=== PATIENT | female | born 2000 | race Caucasian/White ===

== ENCOUNTER 2018-11-29 11:32 | Emergency (ER) | payer MEDICAID ==
--- NOTE | 2018-11-29 11:45 | EDM.PDOC ---
ED HPI GENERAL MEDICAL PROBLEM - General Chief Complaint: Syncope Stated Complaint: FAINTED AT THE CLINIC Time Seen by Provider: 11/29/18 11:41 Source of Information: Reports: Patient History Limitations: Reports: No Limitations - History of Present Illness INITIAL COMMENTS - FREE TEXT/NARRATIVE: patient was at clinic this am having us for and also lab After lab, she had a near syncopal episode; per boyfriend, she was talking throughout the entire episode but she did become pale and per staff at clinic, her blood pressure dropped to 60's systolic. They sent her over because they felt she wasn't "coming around" as quickly as they would expect; she is resting comfortably currently; feels fine; BP 120 systolic. Awaiting labs and US report from clinic that was obtained today. 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: Social & Family History - Tobacco Use Smoking Status *Q: Never Smoker - Recreational Drug Use Recreational Drug Use: No ED ROS GENERAL - Review of Systems Review Of Systems: See Below Constitutional: Reports: Weakness, Other (lightheaded) HEENT: Reports: No Symptoms Respiratory: Reports: No Symptoms Cardiovascular: Reports: No Symptoms GI/Abdominal: Reports: Nausea : Reports: No Symptoms Musculoskeletal: Reports: No Symptoms Skin: Reports: No Symptoms Neurological: Reports: No Symptoms Psychiatric: Reports: No Symptoms ED EXAM, GENERAL - Physical Exam Exam: See Below Exam Limited By: No Limitations General Appearance: Alert, WD/WN, No Apparent Distress Eye Exam: Bilateral Eye: EOMI, PERRL Ears: Normal External Exam Head: Atraumatic, Normocephalic Neck: Normal Inspection, Supple, Non-Tender, Full Range of Motion Respiratory/Chest: No Respiratory Distress, Lungs Clear, Normal Breath Sounds Cardiovascular: Regular Rate, Rhythm GI/Abdominal: Normal Bowel Sounds, Soft, Non-Tender Back Exam: Normal Inspection, Full Range of Motion Extremities: Normal Range of Motion Neurological: Alert, Oriented, CN II-XII Intact, Normal Cognition, Normal Gait Psychiatric: Normal Affect, Normal Mood Skin Exam: Warm, Dry, Intact, Normal Color Course - Vital Signs Last Recorded V/S: Last Vital Signs Temp 96 F 11/29/18 11:35 Pulse 57 L 11/29/18 13:35 Resp 13 11/29/18 13:35 BP 105/68 11/29/18 13:35 Pulse Ox 100 11/29/18 12:08 - Orders/Labs/Meds Orders: Active Orders 24 hr Category Date Time Status Peripheral IV Care [RC] . DIRECTED Care 11/29/18 12:44 Active Peripheral IV Insertion Adult [OM.PC] Stat Oth 11/29/18 12:44 Ordered Meds: Medications Discontinued Medications Generic Name Dose Route Start Last Admin Trade Name Freq PRN Reason Stop Dose Admin Acetaminophen 650 mg 11/29/18 12:20 11/29/18 12:27 Tylenol PO 11/29/18 12:21 650 mg NOW ONE Administration Sodium Chloride 1,000 mls @ 999 mls/hr 11/29/18 12:45 11/29/18 12:50 Normal Saline IV 999 mls/hr ASDIRECTED PAUL Administration Ondansetron HCl 4 mg 11/29/18 12:46 11/29/18 12:55 Zofran IVPUSH 11/29/18 12:47 4 mg ONETIME ONE Administration Sodium Chloride 10 ml 11/29/18 12:44 11/29/18 13:53 Saline Flush FLUSH 10 ml ASDIRECTED PRN Administration Keep Vein Open - Re-Assessments/Exams Free Text/Narrative Re-Assessment/Exam: 11/29/18 12:11 US shows intrauterine , 6 weeks, 3 days with HR 116. Yolk sac 2 mm in diameter. Normal appearance. Second gestational sac is irregular, no detected heart beat; recommend FU with U/s. Labs show wbc 5.2, glucose 82, Hgb 12.9 platelets 273. Free Text/Narrative Re-Assessment/Exam: 11/29/18 12:43 Nurse was getting patient up and ready for discharge and she became weak, and nauseated. Will start IV and given bolus of NS, 1 L. Free Text/Narrative Re-Assessment/Exam: 11/29/18 15:15 After 1 L of NS, she was feeling better; she was able to eat and have something to drink; nurse had patient up and ambulated the halls without any complications ; she feels she is fine for discharge; VSS. Will DC to home. Departure - Departure Time of Disposition: 13:40 Disposition: Home, Self-Care 01 Clinical Impression: Vasovagal syncope, Vasovagal near syncope - Discharge Information *PRESCRIPTION DRUG MONITORING PROGRAM REVIEWED*: Not Applicable *COPY OF PRESCRIPTION DRUG MONITORING REPORT IN PATIENT KAYLA: Not Applicable Instructions: Near-Syncope Referrals: Gracie Dos Santos CNM [Primary Care Provider] - Forms: ED Department Discharge Additional Instructions: Please follow up with your doctor this week. If symptoms worsen, return to the ER drink plenty of water. Call with questions. - Problem List & Annotations (1) Vasovagal near syncope SNOMED Code(s): 791362012 Code(s): R55 - SYNCOPE AND COLLAPSE Status: Acute Priority: Medium - Problem List Review Problem List Initiated/Reviewed/Updated: Yes - My Orders Last 24 Hours: My Active Orders 11/29/18 12:44 Peripheral IV Care [RC] . DIRECTED Peripheral IV Insertion Adult [OM.PC] Stat - Assessment/Plan Last 24 Hours: My Active Orders 11/29/18 12:44 Peripheral IV Care [RC] . DIRECTED Peripheral IV Insertion Adult [OM.PC] Stat
[2018-11-29] MEDS ORDERED: Acetaminophen 325 MG Tab PO ONE (12:20)
[2018-11-29] MEDS ORDERED: Sodium Chloride 0.9% 10 ML Syringe FLUSH PRN (12:44)
[2018-11-29] MEDS ORDERED: Sodium Chloride 0.9% 1,000 ML IV SCH (12:45)
[2018-11-29] MEDS ORDERED: Ondansetron 4 MG/2 ML SDV IVPUSH ONE (12:46)
== END 2018-11-29 14:00 | disposition home or self-care (01) ==
LOC: JP.ED 11:32
DX: O99.89 Other specified diseases and conditions complicating pregnancy, childbirth and the puerperium (principal); R55 Syncope and collapse; Z79.899 Other long term (current) drug therapy; Z3A.01 Less than 8 weeks gestation of pregnancy
CPT/HCPCS: 96361; 96374; 99283; A9270; J2405; J7030

== ENCOUNTER 2019-07-04 13:55 | Inpatient (IN) | payer SELFPAY ==
[2019-07-04] MEDS ORDERED: Lactated Ringers 1,000 ML IV SCH (14:15)
[2019-07-04] MEDS ORDERED: Penicillin G Potassium 5 MILLUNITS in Sodium Chloride 0.9% 100 ML IV ONE (14:30)
[2019-07-04] MEDS ORDERED: ePHEDrine 50 MG/ML SDV IVPUSH PRN (14:31)
[2019-07-04] MEDS ORDERED: Lactated Ringers 1,000 ML IV ONE (14:31)
[2019-07-04] MEDS ORDERED: Sodium Chloride 0.9% 10 ML Syringe FLUSH PRN (15:00)
--- NOTE | 2019-07-04 15:09 | PCM.LDHP ---
L&D History of Present Illness - General Date of Service: 07/04/19 (labor) Admit Problem/Dx: Patient Status Order with Admit Dx/Problem 07/04/19 15:00 Patient Status [ADT] Routine Admission Diagnosis/Problem Admission Diagnosis/Problem Source of Information: Patient History Limitations: Reports: No Limitations - History of Present Illness Introduction:: 07/04/19 19 year old G1 39 1/7 weeks gestation presents in active labor She is GBS positive, treatment started CAN 07/10/19 ABO A pos Rubella immune HIV neg Timing/Duration: Reports: minutes: (3) Quality: Reports: Pressure Severity: Moderate Improves with: Reports: Movement Worsens with: Reports: None - Related Data Allergies/Adverse Reactions: Allergies Allergy/AdvReac Type Severity Reaction Status Date / Time No Known Allergies Allergy Verified 11/29/18 11:37 Home Medications: Home Meds Pnv,Calcium 72/Iron,Carb/Folic [ Plus Iron Tablet] 1 tab PO DAILY [History] Past Medical History - Past Health History Medical/Surgical History: Denies 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: : 1 Para: 0 LMP (Approximate): (CAN 07/10/19) Social & Family History - Tobacco Use Smoking Status *Q: Never Smoker Second Hand Smoke Exposure: No - Caffeine Use Caffeine Use: Reports: None - Recreational Drug Use Recreational Drug Use: No H&P Review of Systems - Review of Systems: Review Of Systems: See Below General: Reports: No Symptoms HEENT: Reports: No Symptoms Pulmonary: Reports: No Symptoms Cardiovascular: Reports: No Symptoms Gastrointestinal: Reports: No Symptoms Genitourinary: Reports: No Symptoms Musculoskeletal: Reports: No Symptoms Skin: Reports: No Symptoms Psychiatric: Reports: No Symptoms Neurological: Reports: No Symptoms Hematologic/Lymphatic: Reports: No Symptoms Immunologic: Reports: No Symptoms L&D Exam - Exam Exam: See Below - Vital Signs Vital Signs: Last Vital Signs Temp 98.2 F 07/04/19 14:04 Pulse Resp 18 07/04/19 14:04 BP 122/66 07/04/19 14:04 Pulse Ox Weight: 143 lb - OB Specific Contraction Intensity: Moderate Movement: Active Heart Tones: Present Heart Tones per Min: 130 Heart Rate (FHR) Variability: Moderate (6-25 bmp) Presentation: Vertex Estimated Weight: 7 pounds - Cao Score Cao Score Cervix Position: Midposition Cao Score Consistency: Soft Cao Score Effacement: >80% Cao Score Dilation: > 5 cm Cao Score Infant's Station: -1 ,0 Cao Score Total: 11 - Exam General: Alert HEENT: Conjunctiva Clear, Mucosa Moist & [place] Neck: Supple Lungs: Normal Respiratory Effort Cardiovascular: Regular Rate GI/Abdominal Exam: Soft Genitourinary: Cervical dilitation, Enlarged uterus Extremities: No Pedal Edema, Normal Capillary Refill Skin: Warm Neurological: Cranial Nerves Intact, Reflexes Equal Bilateral Psychiatric: Alert, Normal Affect, Normal Mood - Patient Data Lab Results Last 24 hrs: Laboratory Results - last 24 hr 07/04/19 07/04/19 Range/Units 14:05 14:05 Urine Color Yellow (YELLOW) Urine Appearance Cloudy A (CLEAR) Urine pH 7.0 (5.0-8.0) Ur Specific [place] 1.020 (1.008-1.030) Urine Protein Negative (NEGATIVE) mg/dL Urine Glucose (UA) Negative (NEGATIVE) mg/dL Urine Ketones Negative (NEGATIVE) mg/dL Urine Occult Blood Negative (NEGATIVE) Urine Nitrite Negative (NEGATIVE) Urine Bilirubin Negative (NEGATIVE) Urine Urobilinogen 0.2 (0.2-1.0) EU/dL Ur Leukocyte Esterase Trace H (NEGATIVE) Urine RBC 0-5 (0-5) Urine WBC 5-10 H (0-5) Ur Epithelial Cells Many Amorphous Sediment Moderate Urine Bacteria Moderate Urine Mucus Few Urine Opiates Screen Negative (NEGATIVE) Ur Oxycodone Screen Negative (NEGATIVE) Urine Methadone Screen Negative (NEGATIVE) Ur Propoxyphene Screen Negative (NEGATIVE) Ur Barbiturates Screen Negative (NEGATIVE) Ur Tricyclics Screen Negative (NEGATIVE) Ur Phencyclidine Scrn Negative (NEGATIVE) Ur Amphetamine Screen Negative (NEGATIVE) U Methamphetamines Scrn Negative (NEGATIVE) Urine MDMA Screen Negative (NEGATIVE) U Benzodiazepines Scrn Negative (NEGATIVE) U Cocaine Metab Screen Negative (NEGATIVE) U Marijuana (THC) Screen Negative (NEGATIVE) - Problem List (1) GBS (group B Streptococcus carrier), +RV culture, currently SNOMED Code(s): 5134154248597, [id number], 6838476998866 ICD Code: O99.820 - STREPTOCOCCUS B CARRIER STATE COMPLICATING Status: Acute Current Visit: Yes (2) Active labor at term SNOMED Code(s): 70241649 ICD Code: XGQ9291 - Status: Acute Current Visit: Yes (3) SNOMED Code(s): 03405225 ICD Code: Z34.90 - ENCNTR FOR SUPRVSN OF NORMAL , UNSP, UNSP TRIMESTER Status: Acute Current Visit: Yes Qualifiers: Weeks of gestation: 38 weeks Qualified Code(s): Z3A.38 - 38 weeks gestation of Problem List Initiated/Reviewed/Updated: Yes Orders Last 24hrs: Active Orders 24 hr Category Date Time Status Patient Status [ADT] Routine ADT 07/04/19 15:00 Ordered Antiembolic Devices [RC] .Routine Care 07/04/19 15:03 Ordered Communication Order [RC] ASDIRECTED Care 07/04/19 14:31 Active Communication Order [RC] ASDIRECTED Care 07/04/19 15:00 Ordered Heart Tones [RC] PER UNIT ROUTINE Care 07/04/19 15:00 Ordered Insert Urinary Catheter [OM.PC] ASDIRECTED Care 07/04/19 14:45 Ordered Local Anesthetic Infusion Pump [RC] ASDIRECTED Care 07/04/19 14:31 Active Notify Provider Vital Signs [RC] PRN Care 07/04/19 15:00 Ordered Notify Provider [RC] PRN Care 07/04/19 15:00 Ordered OB Check [OM.PC] Click to Edit Care 07/04/19 14:05 Ordered PCEA Epidural [RC] ASDIRECTED Care 07/04/19 14:31 Active Urinary Catheter Assessment [RC] ASDIRECTED Care 07/04/19 14:31 Active VTE/DVT Education [RC] Click to Edit Care 07/04/19 15:03 Ordered Vital Signs [RC] PER UNIT ROUTINE Care 07/04/19 15:00 Ordered Regular Diet [DIET] Diet 07/04/19 Dinner Ordered CBC W/O DIFF,HEMOGRAM [HEME] Routine Lab 07/04/19 15:00 Ordered Lactated Ringers [Ringers, Lactated] 1,000 ml Med 07/04/19 14:31 Active IV .BOLUS Lactated Ringers [Ringers, Lactated] 1,000 ml Med 07/04/19 14:15 Active IV ASDIRECTED Penicillin G Potassium [Pfizerpen] 2.5 millunits Med 07/04/19 18:30 Active Sodium Chloride 0.9% [Normal Saline] 50 ml IV Q4H Penicillin G Potassium [Pfizerpen] 5 millunits Med 07/04/19 14:30 Active Sodium Chloride 0.9% [Normal Saline] 100 ml IV ONETIME Sodium Chloride 0.9% [Saline Flush] Med 07/04/19 15:00 Ordered 10 ml FLUSH ASDIRECTED PRN ePHEDrine [ePHEDrine sulfate] Med 07/04/19 14:31 Active 10 mg IVPUSH ASDIRECTED PRN DVT/VTE Prophylaxis Reflex [OM.PC] Routine Oth 07/04/19 15:00 Ordered Epidural Catheter Management [OM.PC] Urgent Oth 07/04/19 14:31 Ordered Saline Lock Insert [OM.PC] Routine Oth 07/04/19 15:00 Ordered Resuscitation Status Routine Resus Stat 07/04/19 15:00 Ordered Medication Orders Ephedrine Sulfate (Ephedrine Sulfate) 10 mg IVPUSH ASDIRECTED PRN PRN Reason: Hypotension Penicillin G Potassium 5 (millunits/ Sodium Chloride) 100 mls @ 100 mls/hr IV ONETIME ONE Stop: 07/04/19 15:29 Last Admin: 07/04/19 14:39 Dose: 100 mls/hr Penicillin G Potassium 2.5 (millunits/ Sodium Chloride) 50 mls @ 100 mls/hr IV Q4H PAUL Lactated Ringer's (Ringers, Lactated) 1,000 mls @ 0 mls/hr IV ASDIRECTED PAUL Lactated Ringer's (Ringers, Lactated) 1,000 mls @ 999 mls/hr IV .BOLUS ONE Stop: 07/04/19 15:31 Last Admin: 07/04/19 14:39 Dose: 999 mls/hr Assessment/Plan Comment:: 07/04/19 active labor pain management per patient request, she would like an epidural Plan for vaginal delivery
[2019-07-04] MEDS ORDERED: Ropivacaine 100 ML ONE (17:15)
--- NOTE | 2019-07-04 17:42 | PCM.PNLD ---
Labor Progress Note - VS & Meds Vital Signs: Last Vital Signs Temp 98.0 F 07/04/19 17:05 Pulse 72 07/04/19 17:12 Resp 18 07/04/19 17:12 BP 119/68 07/04/19 17:12 Pulse Ox 99 07/04/19 17:12 Active Medications: Current Medications Ephedrine Sulfate (Ephedrine Sulfate) 10 mg IVPUSH ASDIRECTED PRN PRN Reason: Hypotension Penicillin G Potassium 2.5 (millunits/ Sodium Chloride) 50 mls @ 100 mls/hr IV Q4H PAUL Lactated Ringer's (Ringers, Lactated) 1,000 mls @ 0 mls/hr IV ASDIRECTED PAUL Last Admin: 07/04/19 16:41 Dose: 125 mls/hr Sodium Chloride (Saline Flush) 10 ml FLUSH ASDIRECTED PRN PRN Reason: Keep Vein Open Discontinued Medications Penicillin G Potassium 5 (millunits/ Sodium Chloride) 100 mls @ 100 mls/hr IV ONETIME ONE Stop: 07/04/19 15:29 Last Admin: 07/04/19 14:39 Dose: 100 mls/hr Lactated Ringer's (Ringers, Lactated) 1,000 mls @ 999 mls/hr IV .BOLUS ONE Stop: 07/04/19 15:31 Last Admin: 07/04/19 14:39 Dose: 999 mls/hr Ropivacaine (Naropin 0.2%) Confirm Administered Dose 100 mls @ as directed .ROUTE .STK-MED ONE Stop: 07/04/19 17:16 - Uterine Contractions Uterine Monitoring Mode: External [facility] Contraction Intensity: Moderate Uterine Resting Tone: Soft - Monitoring Monitor Mode: Doppler/Auscultation Heart Rate (FHR) Baseline: 130 Heart Rate (FHR) Variability: Moderate (6-25 bmp) Accelerations: Present, 15x15 Decelerations: None Strip Review: Category I - Vaginal Exam Dilation (cm): 8 Effacement (Percent): 100 Station: 0 Cervical Position: Anterior Sterile Vaginal Exam Performed By: Lynne Villa - Labor Progress (Free Text) Labor Progress: AROM clear fluid, nice progression of labor expect pushing soon
[2019-07-04] MEDS ORDERED: Lidocaine 1% 50 ML MDV ONE (17:48)
[2019-07-04] MEDS ORDERED: Oxytocin 10 Units/1 ML SDV ONE (17:48)
[2019-07-04] MEDS ORDERED: Penicillin G Potassium 2.5 MILLUNITS in Sodium Chloride 0.9% 50 ML IV SCH (18:30)
--- NOTE | 2019-07-04 19:11 | ANES ---
DATE OF SERVICE: 07/04/2019 INDICATION: Madison is a 19-year-old female, patient of Lynne Villa CNM, and her Obstetric Unit. She is G1, P0, here today in second stage of labor. I was to assess her for epidural. On reviewing her history as well as lab work, and discussing procedure in depth, its risks and benefits, she was okay to proceed and consent was received. TECHNIQUE: I had her seated at the edge of the bed. Betadine prep x3 to lumbar region. Sterile drape was placed, 1% lidocaine skin wheal as well as deep at the L4-L5 region. A 17- gauge Tuohy was placed to loss of resistance. Negative CSF, negative heme, negative paresthesia. I placed the catheter to 14 cm, removed the needle, provided a test dose of 3 mL of 1.5% lidocaine with 1:200,000 epinephrine with negative sequelae. Catheter was then secured, and the patient placed in the supine position. I dosed her with 12 mL of 0.2% ropivacaine and began an infusion of that same 0.2% ropivacaine. She tolerated the procedure quite well. Please refer to nursing notes for vital signs and neuro status, which were unchanged and within normal limits. I discussed with the nurse the procedure, and they were aware of the doses, and again, she tolerated the procedure quite well. Maxwell Branch CRNA /[id number]
[2019-07-04] MEDS ORDERED: Lanolin 100% Cream 40 GM Tube TOP ONE (19:57)
[2019-07-04] MEDS ORDERED: Witch Hazel Medicated Pads 100/Jar TOP ONE (19:57)
[2019-07-04] MEDS ORDERED: Benzocaine 20% Top Spray 56 GM Bottle TOP PRN (19:57)
[2019-07-04] MEDS ORDERED: Hydrocortisone 2.5% Crm 30 GM Tube TOP PRN (19:57)
--- NOTE | 2019-07-04 20:20 | PCM.DEL ---
L & D Note - General Info Date of Service: 07/04/19 (Childbirth) Mother's Due Date: 07/10/19 - Delivery Note Labor: Spontaneous Delivery Outcome: Livebirth Infant Delivery Method: Spontaneous Vaginal Delivery-Single Delivery Mode: Spontaneous Presentation: Right Occiput Anterior (FERNANDO) Nuchal Cord: None Anesthesia Type: Epidural Amniotic Fluid Description: Clear Episiotomy Type: None Laceration: 1st Degree, Vaginal Suture type: Chromic Suture size: 3-0 Placenta: Intact, Spontaneous Cord: 3 Vessels Estimated Blood Loss: 200 Resuscitation Needed: No [place]: Stimulated, Warmed, [place] Used Provider: Lynne Villa Score 1 min: 9 Score 5 min: 9 Second Stage Interventions: Reports: Second Nurse Reviewed Heart Tones, Pushing Effectively, Pushing, McRobert's Position, Pushing, Stirrups/Leg Supports Delivery Comments (Free Text/Narrative):: This 19 year old G1 who is 39 1/7 progressed nicely to complete. She got an epidural at 1715 and was complete at 1809. She received two doses of Penicillin for GBS positive status. She delivered via a viable male over an intact perineum at 1916 in FERNANDO position. The was placed on mother's abdomen where he cried spontaneously. He was dried and stimulated, delayed cord clamping and active management of the third stage were done. Apgars of 9 & 9, all for color. The placenta was expressed spontaneously intact. No lacerations of the perineum , cervix or rectum were found. Left vaginal wall was hamburger like and bleeding , one suture with 3-0 vicryl was placed to obtain hemostasis. EBL 200cc Mother and to post in good condition. weight 7-1 First stage 0341-0222 second stage 7453-4780 Third stage 3823-5110 - General Info Date of Service: 07/04/19 Admission Dx/Problem (Free Text): Patient Status Order with Admit Dx/Problem 07/04/19 15:00 Patient Status [ADT] Routine Admission Diagnosis/Problem Admission Diagnosis/Problem Functional Status: Reports: Pain Controlled - Review of Systems General: Reports: No Symptoms HEENT: Reports: No Symptoms Pulmonary: Reports: No Symptoms Cardiovascular: Reports: No Symptoms Gastrointestinal: Reports: No Symptoms Genitourinary: Reports: No Symptoms Musculoskeletal: Reports: No Symptoms Skin: Reports: No Symptoms Neurological: Reports: No Symptoms Psychiatric: Reports: No Symptoms - Patient Data Vitals - Most Recent: Last Vital Signs Temp 98.5 F 07/04/19 18:35 Pulse 88 07/04/19 18:35 Resp 18 07/04/19 18:35 BP 115/70 07/04/19 18:35 Pulse Ox 97 07/04/19 18:35 Weight - Most Recent: 143 lb I&O - Last 24 Hours: Intake & Output 07/04/19 07/04/19 07/04/19 06:59 14:59 22:59 Intake Total 1050 Balance 1050 Lab Results Last 24 Hours: Laboratory Results - last 24 hr 07/04/19 07/04/19 07/04/19 Range/Units 14:05 14:05 15:18 WBC 15.6 H (4.5-11.0) K/uL RBC 4.61 (3.30-5.50) M/uL Hgb 13.0 (12.0-15.0) g/dL Hct 40.3 (36.0-48.0) % MCV 87 (80-98) fL MCH 28 (27-31) pg MCHC 32 (32-36) % Plt Count 259 (150-400) K/uL Urine Color Yellow (YELLOW) Urine Appearance Cloudy A (CLEAR) Urine pH 7.0 (5.0-8.0) Ur Specific [place] 1.020 (1.008-1.030) Urine Protein Negative (NEGATIVE) mg/dL Urine Glucose (UA) Negative (NEGATIVE) mg/dL Urine Ketones Negative (NEGATIVE) mg/dL Urine Occult Blood Negative (NEGATIVE) Urine Nitrite Negative (NEGATIVE) Urine Bilirubin Negative (NEGATIVE) Urine Urobilinogen 0.2 (0.2-1.0) EU/dL Ur Leukocyte Esterase Trace H (NEGATIVE) Urine RBC 0-5 (0-5) Urine WBC 5-10 H (0-5) Ur Epithelial Cells Many Amorphous Sediment Moderate Urine Bacteria Moderate Urine Mucus Few Urine Opiates Screen Negative (NEGATIVE) Ur Oxycodone Screen Negative (NEGATIVE) Urine Methadone Screen Negative (NEGATIVE) Ur Propoxyphene Screen Negative (NEGATIVE) Ur Barbiturates Screen Negative (NEGATIVE) Ur Tricyclics Screen Negative (NEGATIVE) Ur Phencyclidine Scrn Negative (NEGATIVE) Ur Amphetamine Screen Negative (NEGATIVE) U Methamphetamines Scrn Negative (NEGATIVE) Urine MDMA Screen Negative (NEGATIVE) U Benzodiazepines Scrn Negative (NEGATIVE) U Cocaine Metab Screen Negative (NEGATIVE) U Marijuana (THC) Screen Negative (NEGATIVE) Med Orders - Current: Current Medications Ephedrine Sulfate (Ephedrine Sulfate) 10 mg IVPUSH ASDIRECTED PRN PRN Reason: Hypotension Penicillin G Potassium 2.5 (millunits/ Sodium Chloride) 50 mls @ 100 mls/hr IV Q4H PAUL Last Admin: 07/04/19 18:00 Dose: 100 mls/hr Lactated Ringer's (Ringers, Lactated) 1,000 mls @ 0 mls/hr IV ASDIRECTED PAUL Last Admin: 07/04/19 16:41 Dose: 125 mls/hr Oxytocin/Sodium Chloride (Pitocin In Ns 20 Units/1,000 Ml) 20 unit in 1,000 mls @ 999 mls/hr IV TITRATE PAUL; Protocol Sodium Chloride (Saline Flush) 10 ml FLUSH ASDIRECTED PRN PRN Reason: Keep Vein Open Discontinued Medications Penicillin G Potassium 5 (millunits/ Sodium Chloride) 100 mls @ 100 mls/hr IV ONETIME ONE Stop: 07/04/19 15:29 Last Admin: 07/04/19 14:39 Dose: 100 mls/hr Lactated Ringer's (Ringers, Lactated) 1,000 mls @ 999 mls/hr IV .BOLUS ONE Stop: 07/04/19 15:31 Last Admin: 07/04/19 14:39 Dose: 999 mls/hr Ropivacaine (Naropin 0.2%) Confirm Administered Dose 100 mls @ as directed .ROUTE .STK-MED ONE Stop: 07/04/19 17:16 Oxytocin/Sodium Chloride (Pitocin In Ns 20 Units/1,000 Ml) Confirm Administered Dose 20 unit in 1,000 mls @ as directed .ROUTE .STK-MED ONE Stop: 07/04/19 17:49 Last Admin: 07/04/19 17:56 Dose: 999 mls/hr Lidocaine HCl (Xylocaine 1%) Confirm Administered Dose 100 ml .ROUTE .STK-MED ONE Stop: 07/04/19 17:49 Oxytocin (Pitocin) Confirm Administered Dose 10 unit .ROUTE .STK-MED ONE Stop: 07/04/19 17:49 - Exam General: Alert, Oriented HEENT: Mucous Membr. Moist/[place] Lungs: Normal Respiratory Effort Cardiovascular: Regular Rate, Regular Rhythm GI/Abdominal Exam: Soft (Female) Exam: Cervical Dilatation, Enlarged Uterus, Vaginal Bleeding Back Exam: Full Range of Motion Extremities: No Pedal Edema Skin: Warm, Dry, Intact Neurological: No New Focal Deficit Psy/Mental Status: Alert, Normal Affect, Normal Mood - Problem List & Annotations (1) GBS (group B Streptococcus carrier), +RV culture, currently SNOMED Code(s): 0486085764427, 259096085, 7986370813792 Code(s): O99.820 - STREPTOCOCCUS B CARRIER STATE COMPLICATING Status: Acute Current Visit: Yes (2) Active labor at term SNOMED Code(s): 46185906 Code(s): RXC8901 - Status: Acute Current Visit: Yes (3) SNOMED Code(s): 32465411 Code(s): Z34.90 - ENCNTR FOR SUPRVSN OF NORMAL , UNSP, UNSP TRIMESTER Status: Acute Current Visit: Yes Qualifiers: Weeks of gestation: 38 weeks Qualified Code(s): Z3A.38 - 38 weeks gestation of (4) () SNOMED Code(s): 495326712 Code(s): Z78.9 - OTHER SPECIFIED HEALTH STATUS Status: Acute Current Visit: Yes (5) Vaginal delivery SNOMED Code(s): 621984853 Code(s): O80 - ENCOUNTER FOR FULL-TERM UNCOMPLICATED DELIVERY Status: Acute Current Visit: Yes - Problem List Review Problem List Initiated/Reviewed/Updated: Yes - My Orders Last 24 Hours: My Active Orders 07/04/19 14:05 OB Check [OM.PC] Click to Edit 07/04/19 14:15 Lactated Ringers [Ringers, Lactated] 1,000 ml IV ASDIRECTED 07/04/19 14:31 Communication Order [RC] ASDIRECTED Local Anesthetic Infusion Pump [RC] ASDIRECTED PCEA Epidural [RC] ASDIRECTED ePHEDrine [ePHEDrine sulfate] 10 mg IVPUSH ASDIRECTED PRN Epidural Catheter Management [OM.PC] Urgent 07/04/19 14:45 Insert Urinary Catheter [OM.PC] ASDIRECTED 07/04/19 15:00 Communication Order [RC] ASDIRECTED Notify Provider Vital Signs [RC] PRN Notify Provider [RC] PRN Vital Signs [RC] PER UNIT ROUTINE Sodium Chloride 0.9% [Saline Flush] 10 ml FLUSH ASDIRECTED PRN DVT/VTE Prophylaxis Reflex [OM.PC] Routine Saline Lock Insert [OM.PC] Routine Resuscitation Status Routine 07/04/19 15:03 Antiembolic Devices [RC] .Routine VTE/DVT Education [RC] Click to Edit 07/04/19 18:00 Oxytocin/Normal Saline [Pitocin in NS 20 Units/1,000 ML] 20 unit in 1,000 ml IV TITRATE 07/04/19 18:30 Penicillin G Potassium [Pfizerpen] 2.5 millunits Sodium Chloride 0.9% [Normal Saline] 50 ml IV Q4H 07/04/19 19:57 Benzocaine [Vwam-K-Flgrdhq 20% [place]] See Dose Instructions TOP Q4H ONE Hydrocortisone [Proctozone-HC 2.5% Crm] 1 gm TOP ASDIRECTED PRN Lanolin [Lansinoh HPA] 1 gm TOP ASDIRECTED ONE Witch Yvonne [Tucks] 1 pad TOP ASDIRECTED ONE Assess Lochia [WOMSER] Per Unit Routine Assess Uterine Involution [WOMSER] Per Unit Routine 07/04/19 19:58 Patient Status [ADT] Routine Vital Signs [RC] PFP Ice Therapy [OM.PC] Per Unit Routine Perineal Care [OM.PC] Per Unit Routine Sitz Bath [OM.PC] Per Unit Routine 07/04/19 Dinner Regular Diet [DIET] 07/05/19 05:11 CBC WITH AUTO DIFF [HEME] AM - Assessment Assessment:: 07/04/19 19 year old without complications GBS positive, treated male, - Plan Plan:: 07/04/19 active labor pain management per patient request, she would like an epidural Plan for vaginal delivery 07/04/19 Routine cares support 48 hour stay due to GBS positive status
[2019-07-04] MEDS ORDERED: Ibuprofen 200 MG Tab, 24 Tab Bulk Bottle PO PRN (20:33)
[2019-07-04] MEDS ORDERED: Acetaminophen 325 MG Tab, 50 Tab Bulk Bottle PO PRN (20:33)
--- NOTE | 2019-07-05 08:08 | PCM.PNPP ---
- General Info Date of Service: 07/05/19 Functional Status: Reports: Pain Controlled - Review of Systems General: Reports: No Symptoms HEENT: Reports: No Symptoms Pulmonary: Reports: No Symptoms Cardiovascular: Reports: No Symptoms Gastrointestinal: Reports: No Symptoms Genitourinary: Reports: No Symptoms Musculoskeletal: Reports: No Symptoms Skin: Reports: No Symptoms Neurological: Reports: No Symptoms Psychiatric: Reports: No Symptoms - General Info Date of Service: 07/05/19 - Patient Data Vital Signs - Most Recent: Last Vital Signs Temp 36.4 C 07/05/19 04:04 Pulse 65 07/05/19 04:04 Resp 18 07/05/19 04:04 BP 108/62 07/05/19 04:04 Pulse Ox 97 07/05/19 04:04 Weight - Most Recent: 64.864 kg I&O - Last 24 Hours: Intake & Output 07/04/19 07/05/19 07/05/19 22:59 06:59 14:59 Intake Total 1050 2416 Output Total 1600 Balance 1050 816 Lab Results - Last 24 Hours: Laboratory Results - last 24 hr 07/04/19 07/04/19 07/04/19 Range/Units 14:05 14:05 15:18 WBC 15.6 H (4.5-11.0) K/uL RBC 4.61 (3.30-5.50) M/uL Hgb 13.0 (12.0-15.0) g/dL Hct 40.3 (36.0-48.0) % MCV 87 (80-98) fL MCH 28 (27-31) pg MCHC 32 (32-36) % Plt Count 259 (150-400) K/uL Neut % (Auto) (36-66) % Lymph % (Auto) (24-44) % [place] % (Auto) (2-6) % Eos % (Auto) (2-4) % Baso % (Auto) (0-1) % Urine Color Yellow (YELLOW) Urine Appearance Cloudy A (CLEAR) Urine pH 7.0 (5.0-8.0) Ur Specific [place] 1.020 (1.008-1.030) Urine Protein Negative (NEGATIVE) mg/dL Urine Glucose (UA) Negative (NEGATIVE) mg/dL Urine Ketones Negative (NEGATIVE) mg/dL Urine Occult Blood Negative (NEGATIVE) Urine Nitrite Negative (NEGATIVE) Urine Bilirubin Negative (NEGATIVE) Urine Urobilinogen 0.2 (0.2-1.0) EU/dL Ur Leukocyte Esterase Trace H (NEGATIVE) Urine RBC 0-5 (0-5) Urine WBC 5-10 H (0-5) Ur Epithelial Cells Many Amorphous Sediment Moderate Urine Bacteria Moderate Urine Mucus Few Urine Opiates Screen Negative (NEGATIVE) Ur Oxycodone Screen Negative (NEGATIVE) Urine Methadone Screen Negative (NEGATIVE) Ur Propoxyphene Screen Negative (NEGATIVE) Ur Barbiturates Screen Negative (NEGATIVE) Ur Tricyclics Screen Negative (NEGATIVE) Ur Phencyclidine Scrn Negative (NEGATIVE) Ur Amphetamine Screen Negative (NEGATIVE) U Methamphetamines Scrn Negative (NEGATIVE) Urine MDMA Screen Negative (NEGATIVE) U Benzodiazepines Scrn Negative (NEGATIVE) U Cocaine Metab Screen Negative (NEGATIVE) U Marijuana (THC) Screen Negative (NEGATIVE) 07/05/19 Range/Units 04:00 WBC 17.7 H (4.5-11.0) K/uL RBC 3.98 (3.30-5.50) M/uL Hgb 11.4 L (12.0-15.0) g/dL Hct 34.7 L (36.0-48.0) % MCV 87 (80-98) fL MCH 29 (27-31) pg MCHC 33 (32-36) % Plt Count 247 (150-400) K/uL Neut % (Auto) 80 H (36-66) % Lymph % (Auto) 12 L (24-44) % [place] % (Auto) 8 H (2-6) % Eos % (Auto) 0 L (2-4) % Baso % (Auto) 0 (0-1) % Urine Color (YELLOW) Urine Appearance (CLEAR) Urine pH (5.0-8.0) Ur Specific [place] (1.008-1.030) Urine Protein (NEGATIVE) mg/dL Urine Glucose (UA) (NEGATIVE) mg/dL Urine Ketones (NEGATIVE) mg/dL Urine Occult Blood (NEGATIVE) Urine Nitrite (NEGATIVE) Urine Bilirubin (NEGATIVE) Urine Urobilinogen (0.2-1.0) EU/dL Ur Leukocyte Esterase (NEGATIVE) Urine RBC (0-5) Urine WBC (0-5) Ur Epithelial Cells Amorphous Sediment Urine Bacteria Urine Mucus Urine Opiates Screen (NEGATIVE) Ur Oxycodone Screen (NEGATIVE) Urine Methadone Screen (NEGATIVE) Ur Propoxyphene Screen (NEGATIVE) Ur Barbiturates Screen (NEGATIVE) Ur Tricyclics Screen (NEGATIVE) Ur Phencyclidine Scrn (NEGATIVE) Ur Amphetamine Screen (NEGATIVE) U Methamphetamines Scrn (NEGATIVE) Urine MDMA Screen (NEGATIVE) U Benzodiazepines Scrn (NEGATIVE) U Cocaine Metab Screen (NEGATIVE) U Marijuana (THC) Screen (NEGATIVE) Med Orders - Current: Current Medications Acetaminophen (Tylenol Bulk Bottle) 0 mg PO Q4H PRN PRN Reason: Pain Last Admin: 07/04/19 21:05 Dose: 325 mg Benzocaine (Zjfo-O-Kyqvqlb 20% [place]) 0 gm TOP Q4H PRN PRN Reason: PERINEAL PAIN Last Admin: 07/04/19 21:21 Dose: 1 applic Ephedrine Sulfate (Ephedrine Sulfate) 10 mg IVPUSH ASDIRECTED PRN PRN Reason: Hypotension Hydrocortisone (Proctozone-Hc 2.5% Crm) 0 gm TOP ASDIRECTED PRN PRN Reason: Itching Lactated Ringer's (Ringers, Lactated) 1,000 mls @ 0 mls/hr IV ASDIRECTED PAUL Last Admin: 07/04/19 16:41 Dose: 125 mls/hr Oxytocin/Sodium Chloride (Pitocin In Ns 20 Units/1,000 Ml) 20 unit in 1,000 mls @ 999 mls/hr IV TITRATE PAUL; Protocol Last Admin: 07/04/19 19:20 Dose: 999 mls/hr, 999 mls/hr Ibuprofen (Motrin Bulk Bottle) 600 mg PO Q6H PRN PRN Reason: Pain Last Admin: 07/04/19 21:05 Dose: 600 mg Sodium Chloride (Saline Flush) 10 ml FLUSH ASDIRECTED PRN PRN Reason: Keep Vein Open Discontinued Medications Emollient Ointment (Lansinoh Hpa) 0 gm TOP ASDIRECTED ONE Stop: 07/04/19 19:58 Last Admin: 07/04/19 21:20 Dose: 1 applic Penicillin G Potassium 5 (millunits/ Sodium Chloride) 100 mls @ 100 mls/hr IV ONETIME ONE Stop: 07/04/19 15:29 Last Admin: 07/04/19 14:39 Dose: 100 mls/hr Penicillin G Potassium 2.5 (millunits/ Sodium Chloride) 50 mls @ 100 mls/hr IV Q4H PAUL Last Admin: 07/04/19 18:00 Dose: 100 mls/hr Lactated Ringer's (Ringers, Lactated) 1,000 mls @ 999 mls/hr IV .BOLUS ONE Stop: 07/04/19 15:31 Last Admin: 07/04/19 14:39 Dose: 999 mls/hr Ropivacaine (Naropin 0.2%) Confirm Administered Dose 100 mls @ as directed .ROUTE .STK-MED ONE Stop: 07/04/19 17:16 Oxytocin/Sodium Chloride (Pitocin In Ns 20 Units/1,000 Ml) Confirm Administered Dose 20 unit in 1,000 mls @ as directed .ROUTE .STK-MED ONE Stop: 07/04/19 17:49 Last Admin: 07/04/19 17:56 Dose: 999 mls/hr Lidocaine HCl (Xylocaine 1%) Confirm Administered Dose 100 ml .ROUTE .STK-MED ONE Stop: 07/04/19 17:49 Last Admin: 07/04/19 21:47 Dose: Not Given Oxytocin (Pitocin) Confirm Administered Dose 10 unit .ROUTE .STK-MED ONE Stop: 07/04/19 17:49 Last Admin: 07/04/19 21:47 Dose: Not Given Eduarda Russell (Tucks) 1 pad TOP ASDIRECTED ONE Stop: 07/04/19 19:58 Last Admin: 07/04/19 21:21 Dose: 1 applic - Interaction Disposition, : at Bedside Feeding: Attempted ; Nursed Fair/Poor Support Person: - Recovery Exam Fundal Tone: Firm Fundal Level: At Umbilicus Fundal Placement: Midline Lochia Amount: Small Lochia Color: Rubra/Red Perineum Description: Edematous Episiotomy/Laceration: None Bladder Status: Voiding Urinary Elimination: Voided - Exam General: Alert, Oriented, Cooperative HEENT: Pupils Equal, Pupils Reactive, EOMI, Mucous Membr. Moist/[place] Neck: Supple Lungs: Clear to Auscultation, Normal Respiratory Effort Cardiovascular: Regular Rate, Regular Rhythm GI/Abdominal Exam: Normal Bowel Sounds, Soft, Non-Tender, No Organomegaly, No Distention, No Abnormal Bruit, No Mass, Pelvis Stable Extremities: Normal Inspection, Normal Range of Motion, Non-Tender, No Pedal Edema, Normal Capillary Refill Skin: Warm, Dry, Intact Wound/Incisions: Healing Well Neurological: No New Focal Deficit Psy/Mental Status: Alert, Normal Affect, Normal Mood - Problem List & Annotations (1) () SNOMED Code(s): 094189516 Code(s): Z78.9 - OTHER SPECIFIED HEALTH STATUS Status: Acute Current Visit: Yes (2) GBS (group B Streptococcus carrier), +RV culture, currently SNOMED Code(s): 4085548247477, 265722590, 2904834342823 Code(s): O99.820 - STREPTOCOCCUS B CARRIER STATE COMPLICATING Status: Acute Current Visit: Yes (3) Vaginal delivery SNOMED Code(s): 018140175 Code(s): O80 - ENCOUNTER FOR FULL-TERM UNCOMPLICATED DELIVERY Status: Acute Current Visit: Yes - Problem List Review Problem List Initiated/Reviewed/Updated: Yes - Assessment Assessment:: 07/04/19 19 year old without complications GBS positive, treated [place] male, 07/05/2019 day one Voiding and passing gas Fundus firm and bleeding decreasing Happy with delivery fair - Plan Plan:: 07/04/19 active labor pain management per patient request, she would like an epidural Plan for vaginal delivery 07/04/19 Routine cares support 48 hour stay due to GBS positive status 07/05/2019 Continue routine cares Continue to support and encourage Plan discharge at 48 hours for GBS
[2019-07-05] MEDS ORDERED: Magnesium Hydroxide 400 MG/5 ML Susp 30 ML Cup PO PRN (18:13)
[2019-07-05] MEDS: Docusate Sodium 100 MG Cap PO PRN (20:17)
--- NOTE | 2019-07-06 08:32 | PCM.PNPP ---
- General Info Date of Service: 07/06/19 Functional Status: Reports: Pain Controlled - Review of Systems General: Reports: No Symptoms HEENT: Reports: No Symptoms Pulmonary: Reports: No Symptoms Cardiovascular: Reports: No Symptoms Gastrointestinal: Reports: No Symptoms Genitourinary: Reports: No Symptoms Musculoskeletal: Reports: No Symptoms Skin: Reports: No Symptoms Neurological: Reports: No Symptoms Psychiatric: Reports: No Symptoms - General Info Date of Service: 07/06/19 - Patient Data Vital Signs - Most Recent: Last Vital Signs Temp 36.3 C 07/06/19 05:00 Pulse 74 07/06/19 05:00 Resp 16 07/06/19 05:00 BP 112/72 07/06/19 05:00 Pulse Ox 99 07/06/19 05:00 Weight - Most Recent: 64.864 kg I&O - Last 24 Hours: Intake & Output 07/05/19 07/06/19 07/06/19 22:59 06:59 14:59 Intake Total 1200 Balance 1200 Med Orders - Current: Current Medications Acetaminophen (Tylenol Bulk Bottle) 0 mg PO Q4H PRN PRN Reason: Pain Last Admin: 07/04/19 21:05 Dose: 325 mg Benzocaine (Spxp-K-Crxnpxs 20% [place]) 0 gm TOP Q4H PRN PRN Reason: PERINEAL PAIN Last Admin: 07/04/19 21:21 Dose: 1 applic Docusate Sodium (Colace) 200 mg PO DAILY PRN PRN Reason: Constipation Last Admin: 07/05/19 20:17 Dose: 200 mg Ephedrine Sulfate (Ephedrine Sulfate) 10 mg IVPUSH ASDIRECTED PRN PRN Reason: Hypotension Hydrocortisone (Proctozone-Hc 2.5% Crm) 0 gm TOP ASDIRECTED PRN PRN Reason: Itching Lactated Ringer's (Ringers, Lactated) 1,000 mls @ 0 mls/hr IV ASDIRECTED PAUL Last Admin: 07/04/19 16:41 Dose: 125 mls/hr Oxytocin/Sodium Chloride (Pitocin In Ns 20 Units/1,000 Ml) 20 unit in 1,000 mls @ 999 mls/hr IV TITRATE PAUL; Protocol Last Admin: 07/04/19 19:20 Dose: 999 mls/hr, 999 mls/hr Ibuprofen (Motrin Bulk Bottle) 600 mg PO Q6H PRN PRN Reason: Pain Last Admin: 07/04/19 21:05 Dose: 600 mg Magnesium Hydroxide (Milk Of Magnesia) 30 ml PO DAILY PRN PRN Reason: Constipation Sodium Chloride (Saline Flush) 10 ml FLUSH ASDIRECTED PRN PRN Reason: Keep Vein Open Discontinued Medications Emollient Ointment (Lansinoh Hpa) 0 gm TOP ASDIRECTED ONE Stop: 07/04/19 19:58 Last Admin: 07/04/19 21:20 Dose: 1 applic Penicillin G Potassium 5 (millunits/ Sodium Chloride) 100 mls @ 100 mls/hr IV ONETIME ONE Stop: 07/04/19 15:29 Last Admin: 07/04/19 14:39 Dose: 100 mls/hr Penicillin G Potassium 2.5 (millunits/ Sodium Chloride) 50 mls @ 100 mls/hr IV Q4H PAUL Last Admin: 07/04/19 18:00 Dose: 100 mls/hr Lactated Ringer's (Ringers, Lactated) 1,000 mls @ 999 mls/hr IV .BOLUS ONE Stop: 07/04/19 15:31 Last Admin: 07/04/19 14:39 Dose: 999 mls/hr Ropivacaine (Naropin 0.2%) Confirm Administered Dose 100 mls @ as directed .ROUTE .STK-MED ONE Stop: 07/04/19 17:16 Oxytocin/Sodium Chloride (Pitocin In Ns 20 Units/1,000 Ml) Confirm Administered Dose 20 unit in 1,000 mls @ as directed .ROUTE .STK-MED ONE Stop: 07/04/19 17:49 Last Admin: 07/04/19 17:56 Dose: 999 mls/hr Lidocaine HCl (Xylocaine 1%) Confirm Administered Dose 100 ml .ROUTE .STK-MED ONE Stop: 07/04/19 17:49 Last Admin: 07/04/19 21:47 Dose: Not Given Oxytocin (Pitocin) Confirm Administered Dose 10 unit .ROUTE .STK-MED ONE Stop: 07/04/19 17:49 Last Admin: 07/04/19 21:47 Dose: Not Given Witch Yvonne (Tucks) 1 pad TOP ASDIRECTED ONE Stop: 07/04/19 19:58 Last Admin: 07/04/19 21:21 Dose: 1 applic - Interaction Infant Disposition, : [place] at Bedside Infant Interaction: Holding Infant Feeding: Attempted ; Nursed Fair/Poor Support Person: - Recovery Exam Fundal Tone: Firm Fundal Level: 1 Fingerbreadths Below Umbilicus Fundal Placement: Midline Lochia Amount: Small Lochia Color: Rubra/Red Perineum Description: Intact, Minimal Bruising/Swelling Episiotomy/Laceration: Approximated Bladder Status: Voiding Urinary Elimination: Voided - Exam General: Alert, Oriented, Cooperative HEENT: Pupils Equal, Pupils Reactive, EOMI, Mucous Membr. Moist/[place] Neck: Supple Lungs: Clear to Auscultation, Normal Respiratory Effort Cardiovascular: Regular Rate, Regular Rhythm GI/Abdominal Exam: Normal Bowel Sounds, Soft, Non-Tender, No Organomegaly, No Distention, No Abnormal Bruit, No Mass, Pelvis Stable Extremities: Normal Inspection, Normal Range of Motion, Non-Tender, No Pedal Edema, Normal Capillary Refill Skin: Warm, Dry, Intact Wound/Incisions: Healing Well Neurological: No New Focal Deficit Psy/Mental Status: Alert, Normal Affect, Normal Mood - Problem List & Annotations (1) () SNOMED Code(s): 325747236 Code(s): Z78.9 - OTHER SPECIFIED HEALTH STATUS Status: Acute Current Visit: Yes (2) GBS (group B Streptococcus carrier), +RV culture, currently SNOMED Code(s): 0089092129416, 146420364, 9113726430805 Code(s): O99.820 - STREPTOCOCCUS B CARRIER STATE COMPLICATING Status: Acute Current Visit: Yes (3) Vaginal delivery SNOMED Code(s): 929463845 Code(s): O80 - ENCOUNTER FOR FULL-TERM UNCOMPLICATED DELIVERY Status: Acute Current Visit: Yes - Problem List Review Problem List Initiated/Reviewed/Updated: Yes - My Orders Last 24 Hours: My Active Orders 07/05/19 18:13 Docusate Sodium [Colace] 200 mg PO DAILY PRN Magnesium Hydroxide [Milk of Magnesia] 30 ml PO DAILY PRN - Assessment Assessment:: 07/04/19 19 year old without complications GBS positive, treated [place] male, 07/05/2019 day one Voiding and passing gas Fundus firm and bleeding decreasing Happy with delivery fair 07/06/2019 day two Voiding and passing gas Fundus firm and bleeding decreasing Happy with delivery well Discharging home today - Plan Plan:: 07/04/19 active labor pain management per patient request, she would like an epidural Plan for vaginal delivery 07/04/19 Routine cares support 48 hour stay due to GBS positive status 07/05/2019 Continue routine cares Continue to support and encourage Plan discharge at 48 hours for GBS 07/06/2019 Continue routine cares Continue to support and encourage Plan discharge today To see me in clinic in six weeks for visit
[2019-07-06] MEDS: Docusate Sodium 100 MG Cap PO PRN (09:00)
== END 2019-07-06 17:00 | disposition home or self-care (01) | DRG 807 ==
LOC: JP.OBCHECK 13:55 → JP.OB 14:50 → OBSVTOIN 19:17 → JP.MS 19:18
PROVIDERS: ADMIT Nurse Practitioner Family; ATTEND Nurse Practitioner Family
PROC: 10E0XZZ Delivery of Products of Conception, External Approach (ICD-10-PCS; principal; 2019-07-04)
PROC: 0HQ9XZZ Repair Perineum Skin, External Approach (ICD-10-PCS; 2019-07-04)
PROC: 3E0R3BZ Introduction of Anesthetic Agent into Spinal Canal, Percutaneous Approach (ICD-10-PCS; 2019-07-04)
PROC: 00HU33Z Insertion of Infusion Device into Spinal Canal, Percutaneous Approach (ICD-10-PCS; 2019-07-04)
DX: O99.824 Streptococcus B carrier state complicating childbirth (principal); Z37.0 Single live birth; Z3A.39 39 weeks gestation of pregnancy
CPT/HCPCS: 36415; 59409; 80305-QW; 81001; 85025; 85027; 99211; A9270-GY; J2540; J2590; J2795; J7050; J7120